=== PATIENT | male | born 1980 | race African-American/Black ===

== ENCOUNTER 2025-06-01 23:20 | Emergency (ER) | payer BC, SELFPAY ==
[2025-06-01 23:29] VITALS: BP 120/87; PULSE 84; RESP 18; TEMP 36.6; O2SAT 96; BMI 24.4
--- NOTE | 2025-06-01 23:55 | ED_ITS ---
HPI - Back Pain/Injury General Time Seen by Provider: 23:55 Date Seen: 06/01/25 Chief Complaint: Back Injury/Pain Stated Complaint: Lower back pain Time Seen by Provider: 06/01/25 23:54 Source: patient and other (girlfirend) Mode of arrival: ambulatory History of Present Illness HPI Narrative: Patient is a 44-year-old male who presents to emergency department for evaluation of low back pain. Patient complains of low back pain for the past 5 days. Patient denies any specific trauma, injuries, falls, heavy lifting. Patient reports pain in his left low thoracic and lumbar back that is worse with movement. Patient has been taking Tylenol and ibuprofen intermittently with no significant improvement of symptoms. Patient last took Tylenol yesterday morning. Patient reports history of a similar episode 2 years ago which improved on its own. Patient denies any fever, chills, chest pain, shortness of breath, abdominal pain, nausea, vomiting, diarrhea, weakness, dizziness, paresthesias. Patient denies any history of cancer, no history of IV drug use. Patient does report some urinary frequency but denies any blood, no dysuria. No other complaints. Related Data Home Medications ?Medication ?Instructions ?Recorded ?Confirmed No Known Home Medications 06/01/2507/19 Allergies Allergy/AdvReac Type Severity Reaction Status Date / Time No Known Drug Allergies Allergy Verified 06/01/25 23:32 Review of Systems Narrative: Past medical history, past surgical history, medications, allergies, family history, and social history were reviewed with the patient. No additional pertinent items. A medically appropriate review of systems was performed with pertinent positives and negatives noted in HPI, all other systems negative. [facility] Social History Smoking Status: Current some day smoker Do you use any of these nicotine containing products: None Second hand tobacco smoke exposure: Yes How often do you have a drink containing alcohol: never How often do you have six or more drinks on one occasion: Never AUDIT-C Alcohol total score: 0 Non-prescribed substance use: denies use service: No Exam Narrative: Exam Narrative: General: Afebrile, in distress secondary to pain HEENT: Normocephalic, atraumatic, conjunctiva normal. MMM Neck: non-tender, supple Cardio: regular rate. regular rhythm Resp: Normal work of breathing, no respiratory distress, lungs clear bilaterally, no wheezing, rhonchi, rales Chest/Back: no visual signs of trauma, no midline tenderness, no CVA tenderness, +TTP left lower paraspinal region Abdomen: soft, non distension, no tenderness, no peritoneal signs Neuro: alert and fully oriented. CN II-XII grossly intact. normal strength and sensation in all extremities. normal gait MSK: no deformities. Normal range of motion however patient appears to be in discomfort when going from sitting to standing position and with ROM of back Integumentary/Skin: no rash visualized, normal color Psych: normal affect, normal behavior Const: Vital Signs, click to edit/add: Vital Signs - 24 hr 06/01/25 23:29 06/02/25 01:18 Temperature 97.9 F Pulse Rate [Pulse Oximeter] 84 88 Respiratory Rate 18 18 Blood Pressure [Ri ght Upper Arm] 120/87 126/88 Pulse Oximetry 96 100 Oxygen Delivery Me thod Room Air Room Air Course Course ED Course: Patient is a 44-year-old male who presents to emergency department for evaluation of low back pain. Upon arrival patient is nontoxic appearing, afebrile, in distress secondary to pain. Patient hemodynamically stable vital signs within normal limits. Differential diagnosis includes but is not limited to lumbar strain versus musculoskeletal contusion versus fracture versus sciatica versus pyelonephritis versus cystitis versus nephrolithiasis among others. Patient here with atraumatic low back pain, suspect musculoskeletal etiology given patient's clinical presentation. Patient with no red flags. No focal neurological deficit. No trauma, consider imaging however given patient's clinical presentation, physical exam, will hold off on imaging at this time. Patient and significant other are agreeable plan. Urinalysis with no evidence of acute infection, negative for blood. patient was treated with ibuprofen, o xycodone, Flexeril, lidocaine patch and on re-evaluation patient does report improvement of the symptoms. Patient requesting to discharge home. I think this is reasonable at this time would recommend continue supportive care with Tylenol, ibuprofen, back exercises as tolerated, oxycodone/Flexeril for severe pain/spams. Recommend close outpatient follow-up. Strict return precautions discussed. Patient and significant other understand and agrees the plan. Vital Signs Vital signs: Initial Vital Signs Temperature 97.9 F 06/01/25 23:29 Temperature Source Temporal Artery Scan 06/01/25 23:29 Pulse Rate 84 07/08/25 23:29 Pulse Rhythm Regular 06/01/25 23:29 Respiratory Rate 18 06/01/25 23:29 Blood Pressure 120/87 06/01/25 23:29 Blood Pressure Mean 98 06/01/25 23:29 Blood Pressure Position Sitting 06/01/25 23:29 Pulse Oximetry 96 06/01/25 23:29 Oxygen Delivery Method Room Air 06/01/25 23:29 Vital Signs Temperature 97.9 F 06/01/25 23:29 Pulse Rate 84 06/01/25 23:29 Respiratory Rate 18 06/01/25 23:29 Blood Pressure 120/87 06/01/25 23:29 Pulse Oximetry 96 06/01/25 23:29 Oxygen Delivery Method Room Air 06/01/25 23:29 Temperature 97.9 F 06/01/25 23:29 Pulse Rate 88 06/02/25 01:18 Respiratory Rate 18 06/02/25 01:18 Blood Pressure 126/88 06/02/25 01:18 Pulse Oximetry 100 06/02/25 01:18 Oxygen Delivery Method Room Air 06/02/25 01:18 Medications Administered Medications: Discontinued Medications Generic Name Dose Route Start Last Admin Trade Name Freq PRN Reason Stop Dose Admin Cyclobenzaprine HCl 10 mg 06/02/25 00:39 06/02/25 00:52 Cyclobenzaprine Hcl 10 Mg Tablet PO 06/02/25 00:40 10 mg ONCE ONE Administration Ibuprofen 600 mg 06/02/25 00:39 06/02/25 00:53 Ibuprofen 200 Mg Tablet PO 06/02/25 00:40 600 mg ONCE ONE Administration Lidocaine 1 patch 06/02/25 00:45 06/02/25 00:50 Lidocaine 5% Patch TRANSDERMA 1 patch Q24H DANNY Administration Protocol Oxycodone HCl 5 mg 06/02/25 00:39 06/02/25 00:52 Oxycodone 5 Mg Tablet PO 06/02/25 00:40 5 mg ONCE ONE Administration MDM - Back Pain/Injury Lab Data Labs: Lab Results 06/02/25 Range/Units 00:10 Urine Color Yellow (Yellow) Urine Appearance Clear (Clear) Urine pH 6.0 (5.0-8.5) Ur Specific [place] 1.015 (1.000-1.030) Urine Protein Negative (Negative) Urine Glucose (UA) Negative (Negative) Urine Ketones Negative (Negative) Urine Blood Negative (Negative) Urine Nitrite Negative (Negative) Urine Bilirubin Negative (Negative) Urine Urobilinogen 0.2 (0.2-1.0) Ur Leukocyte Esterase Negative (Negative) Urine RBC 0-2 (0-2) Urine WBC 2-5 (0-5) Ur Squamous Epith Cells Few (None-Few) Amorphous Sediment Few A (None) Urine Bacteria Few A (None) Discharge Plan Discharge Clinical Impression: Low back pain Patient Disposition: Home, Self-Care Condition: Improved Instructions: Acute Low Back Pain (ED) Additional Instructions: Please follow-up with your primary care provider in the next 5-7 days for further evaluation and follow-up. Please call to schedule appointment. Please alternate taking ibuprofen 600 mg and Tylenol 1000 mg every 6 hours as needed f or pain. If you alternate these medications you should be taking something every 3 hours. Please take oxycodone 1 tablet every 6 hours for severe pain. Please take Flexeril twice daily (every 12 hours) as needed for muscle relaxer/muscle spasms. Please do not drink alcohol or drive or operate machinery while on the pain medication or muscle relaxer. Please ambulate and do back exercises as tolerated. Please return to the emergency department if he develops severe pain, inability to ambulate, weakness, tingling, numbness, loss of control of your bowel or bladder, or any worsening symptoms. It was a pleasure taking care of you today. We hope you feel better soon. Prescriptions: No Action No Known Home Medications Follow Up/Referrals: Provider,Not a Local [Primary Care Provider, Family Practice] Stand Alone Forms: [employer] Info Instructions
--- OUTSIDE RECORDS SUMMARY | 2025-06-02 00:44 | XMS_ITS | Clinical Summary ---
Author Organization [employer] [facility] Address [address] [place] [id number] Care Team Providers Care Tanker Truck Driver Name Role Phone None Primary Care Provider Unavailabl e Allergies No known active allergies Medications diazePAM (VALIUM) 5 mg tabletIndicatio ns:Lumbosacral strain, initial encounter Take 1 Tablet (5 mg) by mouth every 6 hours if needed for Muscle Spasm. 15 Tablet 2 Active ibuprofen (ADVIL; MOTRIN) 800 mg tabletIndicatio ns:Lumbosacral strain, initial encounter Take 1 Tablet (800 mg) by mouth three times daily with meals. 30 Tablet 2 Active methylPREDNISol one (MEDROL DOSEPAK) 4 mg tabletIndicatio ns:Lumbosacral strain, initial encounter Take by mouth as instructed per packaging. 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 Gender Identity Not on file Sexual Orientation Not on file Last Filed Vital Signs Vital Sign Reading Time Taken Comments Blood Pressure 152/93 11/15/2022 12:29 PM DUMP OPERATOR Pulse 84 11/15/2022 12:29 PM DUMP OPERATOR Temperature 36.9 C (98.4 F) 11/15/2022 12:29 PM DUMP OPERATOR Respiratory Rate 16 11/15/2022 12:29 PM DUMP OPERATOR Oxygen Saturation 97% 11/15/2022 12:29 PM DUMP OPERATOR Inhaled Oxygen Concentration - - Weight 99.8 kg (220 lb) 11/15/2022 12:29 PM DUMP OPERATOR Height 185.4 cm (6' 1) 11/15/2022 12:29 PM DUMP OPERATOR Body Mass Index 29.03 11/15/2022 12:29 PM DUMP OPERATOR Plan of Treatment Not on file Care Teams Tanker Truck Driver Relationship Specialty Start Date End Date None . PCP - General 11/15/22
[2025-06-02] MEDS: LIDOCAINE 5% PATCH 1 PATCH TRANSDERMA (00:50)
[2025-06-02] MEDS: CYCLOBENZAPRINE HCL 10 MG TABLET PO (00:52)
[2025-06-02] MEDS: IBUPROFEN 200 MG TABLET 600 MG PO (00:53)
[2025-06-02 00:58] LABS: Appearance Urine Clear (Clear)
[2025-06-02 01:18] VITALS: BP 126/88; PULSE 88; RESP 18; O2SAT 100
== END 2025-06-02 02:12 | disposition home or self-care (01) ==
PROVIDERS: Emergency Provider Emergency Medicine
DX: M54.50 Low back pain, unspecified (principal)
CPT/HCPCS: 81001; 87086; 99283; 99285; A9270